=== PATIENT | female | born 1960 | race Caucasian/White ===

== ENCOUNTER 2022-02-19 10:01 | Emergency (ER) | payer MEDICARE, MEDICAID ==
[~2022-02-19] VITALS: Ht 154.9 cm; Wt 106.8 kg
[~2022-02-19 10:01] MED LIST: NAPR-56 PO
[2022-02-19 10:26] VITALS: BP 134/77
== END 2022-02-19 11:41 | disposition home or self-care (01) ==
LOC: ER 10:02
DX: S80.11XA Contusion of right lower leg, initial encounter (principal); Z87.891 Personal history of nicotine dependence; W21.4XXA Striking against diving board, initial encounter; Y93.89 Activity, other specified; Y92.89 Other specified places as the place of occurrence of the external cause; Y99.8 Other external cause status
CPT/HCPCS: 73590; 99283